=== PATIENT | female | born 1945 | race Caucasian/White ===

== ENCOUNTER 2019-12-19 07:25 | Outpatient (RCR) | payer MEDICARE, SELFPAY ==
[2019-11-01 12:30] VITALS: BMI 54.9
== END 2020-01-22 08:17 | disposition home or self-care (01) ==
LOC: ANHWOC 07:25
PROVIDERS: PCP Emergency Medicine; Visit Provider Emergency Medicine
DX: R19.8 Other specified symptoms and signs involving the digestive system and abdomen (principal)
CPT/HCPCS: 99211; 99212; A9270; G0463

== ENCOUNTER → 2021-04-02 14:04 | Outpatient (CLI) | payer MEDICARE, SELFPAY ==
--- NOTE | ~2021-04-02 | MM_ITS ---
EXAMINATION: MM screening gordy BI w cathryn HISTORY: Screening mammogram, family history of breast cancer in her mother. TECHNIQUE: Craniocaudal and mediolateral oblique 3-D tomosynthesis images were obtained and synthetic 2-D images were generated. CAD analysis was submitted and interpreted. COMPARISON: 01/30/2019, 01/11/2018 BREAST PARENCHYMAL COMPOSITION: There are scattered areas of fibroglandular density. FINDINGS: RIGHT BREAST: There is no evidence of suspicious mass, calcification, or architectural distortion to suggest malignancy. There has been no significant interval change. LEFT BREAST: There is architectural distortion possible mass in the middle third of the lower inner b reast 8 cm from the nipple. IMPRESSION: 1. Architectural distortion possible left breast mass. 2. Additional mammographic views and possible breast ultrasound are recommended. BI-RADS Category 0: Incomplete: Needs additional imaging evaluation. Reviewed, dictated and finalized at location A. INUOUS IMPROVEMENT BLACK BELT IMPRESSION: 1. Architectural distortion possible left breast mass. 2. Additional mammographic views and possible breast ultrasound are recommended . BI-RADS Category 0: Incomplete: Needs additional imaging evaluation.
--- NOTE | ~2021-04-02 | XR_ITS ---
EXAMINATION: XR knee LT 2V DATE: 04/02/2021 15:28 INDICATION: Left knee pain. TECHNIQUE: 2 views of left knee including a standing view were obtained. COMPARISON: Left knee radiographs 02/10/2017 FINDINGS: There is lateral subluxation of tibia with respect to distal femur. No fracture. There is s evere osteoarthritis of medial and patellofemoral compartments and moderate osteoarthritis of lateral compartment. No knee joint effusion. IMPRESSION: 1. Severe left knee osteoarthritis. Reviewed, dictated and finalized at location A. ESS DEVELOPMENT TECHNICIAN
--- NOTE | ~2021-04-02 | XR_ITS ---
EXAMINATION: XR knee RT 2V DATE: 04/02/2021 15:27 INDICATION: Right knee pain. TECHNIQUE: 2 views of right knee including a standing view were obtained. COMPARISON: Right knee radiographs 02/10/2017 FINDINGS: There is lateral subluxation of tibia with respect to distal femur. No fracture. There is s evere tricompartmental osteoarthritis. No knee joint effusion. IMPRESSION: 1. Severe right knee osteoarthritis. Reviewed, dictated and finalized at location A. DING MAINTENANCE ENGINEER
== END ==
PROVIDERS: PCP Emergency Medicine; Visit Provider Emergency Medicine
DX: Z12.31 Encounter for screening mammogram for malignant neoplasm of breast (principal); M25.561 Pain in right knee; M25.562 Pain in left knee; G89.29 Other chronic pain; R92.8 Other abnormal and inconclusive findings on diagnostic imaging of breast; M17.0 Bilateral primary osteoarthritis of knee
CPT/HCPCS: 73560; 77063; 77067

== ENCOUNTER → 2021-05-06 09:43 | Outpatient (CLI) | payer MEDICARE, SELFPAY ==
--- NOTE | ~2021-05-06 | MMUS_ITS ---
EXAMINATION: MM diagnostic gordy LT w cathryn, US breast LT limited HISTORY: Architectural distortion and possible left breast mass on screening mammogram TECHNIQUE: Additional 3-D tomosynthesis images of the left breast were performed and synthetic 2-D im ages were generated. CAD analysis was submitted and interpreted. High resolution limited left breast ultrasound was performed. COMPARISON: 04/02/2021, 01/30/2019, 01/11/2018 BREAST PARENCHYMAL COMPOSITION: There are scattered areas of fibroglandular density. FINDINGS: MAMMOGRAPHIC FINDINGS: There is a 5 mm irregular high density mass with spiculated margins at the 9:00 location the middle t hird of inner breast 8 cm from the nipple. There is surrounding architectural distortion. ULTRASOUND: There is a 5 mm irregular, hypoechoic, not parallel mass with angular margins, posterior acoustic sha dowing, and internal vascularity at the 9:00 location 8 cm from the nipple. IMPRESSION: 1. Suspicious left breast mass. 2. Ultrasound-guided biopsy is recommended. BI-RADS category 5, highly suggestive of malignancy. Reviewed, dictated and finalized at location A. LATION BOARD CALENDER OPERATOR IMPRESSION: 1. Suspicious left breast mass. 2. Ultrasound-guided biopsy is recommended. BI-RADS category 5, highly suggestive of malignancy.
== END ==
PROVIDERS: PCP Emergency Medicine; Visit Provider Emergency Medicine
DX: R92.8 Other abnormal and inconclusive findings on diagnostic imaging of breast (principal)
CPT/HCPCS: 76642; 77061; 77065; G0279

== ENCOUNTER 2021-07-20 09:47 | Outpatient (CLI) | payer MEDICARE, SELFPAY ==
--- NOTE | ~2021-07-20 | MMUS_ITS ---
US breast biopsy LT w image, MM post biopsy invasive LT EXAMINATION: US GUIDED NEEDLE BIOPSY WITH VAC UUM ASSISTANCE DATE: 07/20/2021 10:45 MOTORCYCLE MECHANIC INDICATION: Left breast mass seen on recent examination. Ultrasound-guided core biopsy is requested to evaluate for malignancy. TECHNIQUE AND FINDINGS: The risks and potential benefits of the procedure were discussed with the patient, and written inform ed consent was obtained. After sterile preparation of the left breast, 1% lidocaine was utilized for local anesthesia. 1% lidocaine with epinephrine was used for deep anesthesia. A 10G vacuum-assisted biopsy gun needle was advanced through to the outer edge of the region of inter est from a medial approach utilizing sonographic guidance. A total of 4 tissue core samples were obt ained through the lesion. An Inrad tissue marker clip was then placed at the biopsy site. Hemostasis was achieved. The patient tolerated procedure well and there was no evidence of immediate complication. The patien t was given verbal instructions partly is from the department. Left breast mammograms to document ti ssue marker clip placement lower inner quadrant. The tissue samples were submitted to surgical pathol oggregory for histologic analysis. IMPRESSION: 1. Successful ultrasound-guided vacuum-assisted biopsy of left breast mass with tissue marker placem ent. Please refer to pathology report for histologic analysis. Reviewed, dictated and finalized at location A. RCYCLE MECHANIC IMPRESSION: 1. Successful ultrasound-guided vacuum-assisted biopsy of left breast mass wit h tissue marker placement. Please refer to pathology report for histologic anal ysis.
== END 2021-07-20 09:48 | disposition home or self-care (01) ==
PROVIDERS: PCP Emergency Medicine; Visit Provider Surgery
DX: N63.20 Unspecified lump in the left breast, unspecified quadrant (principal); R92.8 Other abnormal and inconclusive findings on diagnostic imaging of breast; C50.912 Malignant neoplasm of unspecified site of left female breast
CPT/HCPCS: 19083; 88305; 88342; A4648

== ENCOUNTER 2022-06-23 18:06 | Emergency (ER) | payer MEDICARE, SELFPAY ==
[2022-06-23] VITALS (18 sets, daily range): BP systolic 144; BP diastolic 89; PULSE 84–111; RESP 9–21; TEMP 37.1; O2SAT 94–100
--- NOTE | ~2022-06-23 | XR_ITS ---
EXAMINATION: XR chest 1V portable DATE: 06/23/2022 18:41 INDICATION: Chest pain TECHNIQUE: frontal view of the chest was obtained. COMPARISON: None FINDINGS: Mild streaky bibasilar opacities and favor atelectasis or pneumonia. No pulmonary edema, pleural effu lin or pneumothorax. Borderline heart size accounting for AP technique. IMPRESSION: 1. Mild streaky bibasilar atelectasis. 2. Borderline heart size. Reviewed, dictated and finalized at location A. GROOVY DEVELOPER
--- NOTE | ~2022-06-23 | XR_ITS ---
EXAMINATION: XR shoulder LT min 2V DATE: 06/23/2022 19:50 INDICATION: Acute anterior left shoulder pain TECHNIQUE: AP internally and externally rotated, AP oblique externally rotated and transscapular Y vi ews of the left shoulder were obtained. COMPARISON: None FINDINGS: Normal alignment. No fracture. Moderate osteoarthritis at the left acromioclavicular and glenohumera l joints. Small subacromial spur. Mild left basilar atelectasis. Soft tissues are unremarkable. IMPRESSION: Moderate left acromioclavicular and glenohumeral osteoarthritis.. Reviewed, dictated and finalized at location A. ET REPAIRER
--- NOTE | 2022-06-23 18:07 | ECG_ITS ---
Measurements Intervals Martell Rate: 110 P: MS: 0 QRS: -5 QRSD: 123 T: -14 QT: 318 QTc: 431 Interpretive Statements ATRIAL FIBRILLATION WITH RAPID VENTRICULAR RESPONSE RIGHT BUNDLE BRANCH BLOCK [120+ ms QRS DURATION, UPRIGHT V1, 40+ ms S IN I/aVL/V4/V5/V6] NO PREVIOUS ECG AVAILABLE FOR COMPARISON Electronically Signed On 06-24-2022 15:34:29 EDUCATIONAL CONSULTANT by Jami Francisco M.D.
[2022-06-23 19:01] LABS: Basophils Percent Auto 0.3 % (0.2-1.2); Eosinophils Percent Auto 0.4 % (0-4.4); Hematocrit 38.1 % (37.0-47.0); Hemoglobin 12.3 g/dL (12.0-15.0); Immature Granulocyte Absolute 0.14 K/mm3 (0.00-0.031); Lymphocytes Absolute Auto 0.47 K/mm3 (0.9-3.2); Lymphocytes Percent Auto 6.6 % (18.3-44.2); Mean Corpuscular HGB Conc 32.3 g/dl (32-36); Mean Corpuscular Hemoglobin 32.5 pg (26-34); Mean Corpuscular Volume 100.8 fl (80-100); Mean Platelet Volume 9.4 fl (7.4-10.4); Monocytes Percent Auto 13.5 % (2.6-8.5); Neutrophils Absolute Auto 5.5 K/mm3 (1.3-6.7); Neutrophils Percent Auto 77.2 % (45.5-73.1); Platelet Count Result 201 k/mm3 (150-375); Red Blood Count 3.78 M/mm3 (4.2-5.4); Red Cell Distribution Width 12.7 % (11.5-14.5); White Blood Count 7.2 K/mm3 (4.5-10.0)
[2022-06-23 19:12] LABS: Potassium 4.5 mmol/L (3.4-5.0)
[2022-06-23 19:19] LABS: INR 1.3
[2022-06-23 19:20] LABS: Partial Thromboplastin Time 40.3 SECONDS (22.3-36.8)
[2022-06-23 19:24] LABS: Troponin I < 0.012 ng/mL (0.000-0.034)
[2022-06-23 19:25] LABS: Alanine Aminotransferase 43 U/L (6-35); Albumin Level 3.5 g/dL (3.5-5.1); Alkaline Phosphatase 104 U/L (38-126); Anion Gap 3 mmol/L (8-16); Aspartate Amino Transferase 35 U/L (14-36); Blood Urea Nitrogen 14 mg/dL (7-17); Calcium 8.8 mg/dL (8.4-10.2); Carbon Dioxide 29 mmol/L (22-30); Chloride 103 mmol/L (98-107); Estimated CRCL calculation 67 ml/min; Estimated Glomerular Filt Rate > 60; Glucose 112 mg/dL (65-110); Lipase 102 U/L (23-300); Sodium 135 mmol/L (137-145)
--- NOTE | 2022-06-23 19:28 | ED.CHESTPAIN ---
HPI - Chest Pain General Chief Complaint: Chest Pain Stated Complaint: chest pain Time Seen by Provider: 06/23/22 18:32 History of Present Illness HPI narrative: Patient is a 76-year-old female with a history of A-fib on Eliquis, hypertension, hyperlipidemia presenting with chest pain. Patient states that she was just sitting when she developed left sided chest and shoulder pain that goes into her neck. States that it is worsened with movements. She denies shortness of breath, lightheadedness, palpitations. She denies previous episodes like this. She denies recent trauma. No abdominal pain, nausea or vomiting, diarrhea, dysuria, leg swelling. Related Data Home Medications Medication Instructions Recorded Confirmed cholecalciferol (vitamin D3) 100 4,000 unit PO DAILY 05/15/19 07/27/21 mcg (4,000 unit) capsule multivitamin See Rx Instructions .Route .COMPLEX 05/15/19 07/27/21 acetaminophen 500 mg tablet 500 mg PO Q6H PRN Pain 05/23/19 07/27/21 (Tylenol Extra Strength) apixaban 5 mg tablet (Eliquis) 5 mg PO BID 06/08/22 letrozole 2.5 mg tablet 2.5 mg PO DAILY 06/08/22 metoprolol succinate 25 mg 25 mg PO DAILY 06/08/22 tablet,extended release 24 hr Allergies Allergy/AdvReac Type Severity Reaction Status Date / Time Penicillins Allergy Unknown Unknown Verified 06/23/22 18:22 Sulfa (Sulfonamide Allergy Unknown Unknown Verified 06/23/22 18:22 Antibiotics) sulfanilamide Allergy Unknown Unknown Verified 06/23/22 18:22 Review of Systems Review of Systems: All systems reviewed & are unremarkable except as noted in HPI and below PMFSH Past Medical History Medical History Depression HLD (hyperlipidemia) Left knee DJD Right knee DJD Surgical History Surgical History History of hysterectomy total History of laparoscopic cholecystectomy Family History Family History Father Hypertension Patient's father is , Onset Age: 83 Mother Family history of malignant neoplasm of breast in first degree relative, Onset Age: 74 Sibling Family history of malignant neoplasm of testis Other Family history of arthritis Family history of cardiovascular disease Family history of malignant neoplasm Heart disease High cholesterol Social History Social History Smoking status: Former smoker Smoking end date: 05/16/03 Alcohol intake: never Substance use: never Living arrangements: with family Occupation/Education: retired Gender identity (if verbalized by the patient): Female Exam Narrative: GENERAL: Sitting in bed in no acute distress HEAD: Normocephalic, atraumatic. EYES: PERRLA and EOMI. ENT: Nares clear, no rhinorrhea or epistaxis. Mucous membranes moist. NECK: Supple. CHEST: Clear to auscultation. No respiratory distress. HEART: Irregular rhythm, regular rate no murmur heard. Normal peripheral pulses. ABDOMEN: Soft, nontender, nondistended, normal active bowel sounds. EXTREMITIES: Patient with significant tenderness of left shoulder especially along the anterior aspect of the glenohumeral joint, also significantly tender along anterior left chest wall and left trapezius muscle, no cervical tenderness; limited range of motion of the left shoulder due to pain; radial pulses are 2+ bilaterally; no overlying skin changes concerning for infection or rash SKIN: Warm, dry, no rash. NEURO: No focal deficits. Alert and oriented x3. PSYCH: Normal mood and affect. Course Vital Signs Vital signs: Vital Signs Temperature 98.7 F 06/23/22 18:17 Pulse Rate 109 H 06/23/22 18:17 Respiratory Rate 20 06/23/22 18:17 Blood Pressure 144/89 H 06/23/22 18:17 Pulse Oximetry 99 06/23/22 18:17 Oxygen Delivery Room Air 06/23/22 18:17
[2022-06-23] MEDS: CYCLOBENZAPRINE HCL 5 MG TABLET PO (20:39)
[2022-06-23] MEDS: SODIUM CHLORIDE 0.9% IV 1,000 ML 999 ML IV CONT (20:39)
[2022-06-23] MEDS: KETOROLAC 15 MG/ML VIAL (*BKC) IV PUSH (20:52)
[2022-06-23 22:15] LABS: Troponin I < 0.012 ng/mL (0.000-0.034)
== END 2022-06-23 23:12 | disposition home or self-care (01) ==
PROVIDERS: Emergency Medicine; Emergency Provider Emergency Medicine; PCP Emergency Medicine
DX: M25.512 Pain in left shoulder (principal); M79.10 Myalgia, unspecified site; F32.9 Major depressive disorder, single episode, unspecified; E78.5 Hyperlipidemia, unspecified
CPT/HCPCS: 36415; 71045; 73030; 80053; 83690; 84484; 85025; 85610; 85730; 93005; 96361; 96374; 96375; 99284; A9270; J0131; J1885; J7030